=== PATIENT | male | born 2005 | race Caucasian/White ===

== ENCOUNTER 2024-02-20 19:00 | Emergency (ER) | payer OTHER ==
[~2024-02-20] VITALS: Ht 177.8 cm; Wt 68.0 kg
[2024-02-20 21:04] VITALS: BP 114/62; PULSE 70; RESP 20; TEMP 98; O2SAT 100
== END 2024-02-20 21:08 | disposition home or self-care (01) ==
LOC: ER 19:00
DX: S01.01XA Laceration without foreign body of scalp, initial encounter (principal); S61.432A Puncture wound without foreign body of left hand, initial encounter; R55 Syncope and collapse; W22.8XXA Striking against or struck by other objects, initial encounter; Y93.H1 Activity, digging, shoveling and raking; Y92.89 Other specified places as the place of occurrence of the external cause; Y99.8 Other external cause status
CPT/HCPCS: 12002; 70450; 73120